=== PATIENT | male | born 1965 | race Caucasian/White ===

== ENCOUNTER 2020-12-23 20:22 | Inpatient (IN) | payer MEDICAID ==
[~2020-12-23] VITALS: Ht 170.2 cm; Wt 98.4 kg
--- NOTE | 2020-12-23 20:34 | NUR ---
Dr. Ireland at bedside for [facility].
[2020-12-23] MEDS ORDERED: ASPI81TA31 PO (20:42)
[2020-12-23] MEDS ORDERED: clonidine PO (20:42)
--- NOTE | 2020-12-23 20:49 | NUR ---
Xray at bedside.
[2020-12-23 20:53] LABS: BASOPHILS # (AUTO) 0.1 K/uL (0.0-8.0); BASOPHILS % (AUTO) 0.6 % (0.0-2.0); EOSINOPHILS # (AUTO) 0.3 K/uL (0.0-0.7); EOSINOPHILS % (AUTO) 2.9 % (0.0-7.0); HEMATOCRIT 35.2 % (36.7-47.1); HEMOGLOBIN 11.2 g/dL (12.5-16.3); LYMPHOCYTES % (AUTO) 20.8 % (20.5-51.5); MEAN CORPUSCULAR HEMOGLOBIN 28.5 uug (23.8-33.4); MEAN CORPUSCULAR HGB CONC 32 g/dL (32.5-36.3); MEAN CORPUSCULAR VOLUME 89.7 fL (73.0-96.2); MONOCYTES # (AUTO) 0.7 K/uL (2.0-10.0); MONOCYTES % (AUTO) 7.3 % (0.0-11.0); NEUTROPHILS # (AUTO) 6.7 K/uL (1.8-8.9); NEUTROPHILS % (AUTO) 68.4 % (38.5-71.5); PLATELET COUNT (AUTO) 268 K/uL (152-348); RED BLOOD CELL COUNT(AUTO) 3.92 MIL/uL (4.06-5.63); WHITE BLOOD COUNT (AUTO) 9.8 K/uL (3.6-10.2)
[2020-12-23 20:57] LABS: CARBON DIOXIDE 26 mmol/L (21-32); CHLORIDE 105 mmol/L (98-107); CREATININE 6.7 mg/dL (0.6-1.3); GLUCOSE 99 mg/dL (74-106); POTASSIUM 4.8 mmol/L (3.5-5.1); UREA NITROGEN, BLOOD 58 mg/dL (7-18)
[2020-12-23 21:02] LABS: ALANINE AMINOTRANSFERASE 9 U/L (16-63); ALKALINE PHOSPHATASE 61 U/L (50-136); ASPARTATE AMINOTRANSFERASE 16 U/L (15-37); BILIRUBIN,DIRECT < 0.1 mg/dL (0.0-0.2); BILIRUBIN,TOTAL 0.3 mg/dL (0.2-1.0); TOTAL PROTEIN, SERUM 6.1 g/dL (6.4-8.2)
[2020-12-23] MEDS ORDERED: NITROGLYCERIN OINT 1 GM PACKET TP ONE ×2 (21:28→21:30)
--- NOTE | 2020-12-23 21:54 | NUR ---
Dr. Ireland on panel call with Jayna Grimes NP. Patient accepted for admission to [facility], diagnosis: volume overload.
[2020-12-23] MEDS ORDERED: ACETAMINOPHEN 325 MG TABLET PO ONE (22:00)
--- NOTE | 2020-12-23 22:00 | NUR ---
Paged MVP for nephrology consult.
--- NOTE | 2020-12-23 22:12 | NUR ---
DR Ireland spoke to Dr Shailesh Watts for nephrology consult.
[2020-12-23] MEDS ORDERED: ACETAMINOPHEN 325 MG TABLET PO PRN (22:15)
[2020-12-23] MEDS ORDERED: ONDANSETRON 4 MG/2 ML VIAL IV PRN (22:15)
[2020-12-23] MEDS ORDERED: CLONIDINE HCL 0.1 MG TABLET PO PRN (22:15)
[2020-12-23] MEDS ORDERED: Z GUARD REMEDY PASTE 57 GM TUBE TOP PRN (22:15)
[2020-12-23] MEDS ORDERED: ACETAMINOPHEN 325 MG TABLET ONE (22:20)
--- NOTE | 2020-12-23 22:25 | NUR ---
Report given to Kus[facility].
--- NOTE | 2020-12-23 23:00 | NUR ---
RECEIVED PT FROM ER VIA WHEELCHAIR.UNDER THE CARE OF RHONDA SHINE DNP. PT IN NO ACUTE DISTRESS. IV INTACT. ALF ASSESSMENT DONE. ADMISSION PROCESS AND CARE PLAN INITIATED. BELONGING LIST NOTED. SAFETY AND COMFORT PROVIDED. PT REQUESTING FOR SLEEPING MEDICATION AND EXTRA PAIN MEDICATION NOT JUST TYLENOL. WILL NOTIFY AREA FIELD MANAGER. WILL CONTINUE TO MONITOR.
[2020-12-23 23:14] VITALS: BP 133/84
[2020-12-23] MEDS ORDERED: ZOLPIDEM 5 MG TABLET PO ONE (23:30)
--- NOTE | 2020-12-23 23:30 | NUR ---
CHRIS 1MG ONE TIME ORDERED FOR THE PT .
--- NOTE | 2020-12-24 06:10 | NUR ---
PT SLEPT INTERMITTENTLY. PT IN NO ACUTE DISTRESS. PRESCRIBED MEDICATION GIVEN AND PT TOLERATED IT WELL. . PT REFUSED TO WEAR HOSPITAL GOWN AND FOR SKIN CHECK. SAFETY AND COMFORT PROVIDED. ALL NEEDS ARE MET.ENDORSE TO INCOMING NURSE FOR CONTINUITY OF CARE.
[2020-12-24 06:16] VITALS: BP 137/77
[2020-12-24] MEDS ORDERED: PANTOPRAZOLE SODIUM 40 MG TABLET.DR PO SCH (07:00)
[2020-12-24 07:12] LABS: BASOPHILS % (AUTO) 0.5 % (0.0-2.0); EOSINOPHILS # (AUTO) 0.6 K/uL (0.0-0.7); EOSINOPHILS % (AUTO) 9.8 % (0.0-7.0); HEMATOCRIT 41.5 % (36.7-47.1); HEMOGLOBIN 14.2 g/dL (12.5-16.3); LYMPHOCYTES # (AUTO) 1.5 K/uL (20.0-40.0); LYMPHOCYTES % (AUTO) 23.4 % (20.5-51.5); MEAN CORPUSCULAR HEMOGLOBIN 32.4 uug (23.8-33.4); MEAN CORPUSCULAR HGB CONC 34 g/dL (32.5-36.3); MONOCYTES # (AUTO) 0.6 K/uL (2.0-10.0); MONOCYTES % (AUTO) 9.5 % (0.0-11.0); NEUTROPHILS # (AUTO) 3.7 K/uL (1.8-8.9); NEUTROPHILS % (AUTO) 56.8 % (38.5-71.5); PLATELET COUNT (AUTO) 201 K/uL (152-348); RED BLOOD CELL COUNT(AUTO) 4.37 MIL/uL (4.06-5.63); WHITE BLOOD COUNT (AUTO) 6.6 K/uL (3.6-10.2)
[2020-12-24 07:29] LABS: CREATININE 0.9 mg/dL (0.6-1.3); PHOSPHOROUS 3.9 mg/dL (2.5-4.9); POTASSIUM 3.9 mmol/L (3.5-5.1)
--- NOTE | 2020-12-24 07:30 | NUR ---
Received pt in bed with dialysis. In no acute distress, iv site intact and patent, On room air. pt is able to make needs known call light in reach and safety measures in place. will continue to monitor
[2020-12-24 07:42] LABS: THYROID STIMULATING HORMONE 1.867 mIU/mL (0.358-3.740)
[2020-12-24] MEDS ORDERED: ASPIRIN 81 MG TAB.CHEW PO SCH (09:00)
[2020-12-24 09:04] LABS: BASOPHILS # (AUTO) 0.1 K/uL (0.0-8.0); BASOPHILS % (AUTO) 0.7 % (0.0-2.0); EOSINOPHILS # (AUTO) 0.2 K/uL (0.0-0.7); EOSINOPHILS % (AUTO) 1.9 % (0.0-7.0); HEMATOCRIT 31.8 % (36.7-47.1); HEMOGLOBIN 10.3 g/dL (12.5-16.3); LYMPHOCYTES # (AUTO) 1.4 K/uL (20.0-40.0); LYMPHOCYTES % (AUTO) 15.3 % (20.5-51.5); MEAN CORPUSCULAR HGB CONC 33 g/dL (32.5-36.3); MEAN CORPUSCULAR VOLUME 89.1 fL (73.0-96.2); MONOCYTES # (AUTO) 0.6 K/uL (2.0-10.0); MONOCYTES % (AUTO) 6.3 % (0.0-11.0); NEUTROPHILS # (AUTO) 6.7 K/uL (1.8-8.9); NEUTROPHILS % (AUTO) 75.8 % (38.5-71.5); PLATELET COUNT (AUTO) 232 K/uL (152-348); RED BLOOD CELL COUNT(AUTO) 3.57 MIL/uL (4.06-5.63); WHITE BLOOD COUNT (AUTO) 8.9 K/uL (3.6-10.2)
[2020-12-24 09:18] LABS: MAGNESIUM 1.9 mg/dL (1.8-2.4); PHOSPHOROUS 3.6 mg/dL (2.5-4.9); POTASSIUM 4.2 mmol/L (3.5-5.1)
--- NOTE | 2020-12-24 11:15 | NUR ---
Dialysis was completed 1000 output. vital signs WNLs
[2020-12-24 11:55] VITALS: BP 134/82
--- NOTE | 2020-12-24 12:45 | NUR ---
Pt was discharged and left in a wheel chair. Teaching was completed about continuing dialysis on scheduled days and following up with PCP, Verbal understanding was given. All meds given as ordered and left with prescriptions. Pt on room air satting well. Pt in no acute distress and left with proper documentation.
== END 2020-12-24 12:00 | disposition home or self-care (01) | DRG 194 ==
LOC: ER 20:24 → MEDSURG3 22:32
PROVIDERS: ADMIT Registered Nurse; ATTEND Registered Nurse
PROC: 5A1D70Z Performance of Urinary Filtration, Intermittent, Less than 6 Hours Per Day (ICD-10-PCS; principal; 2020-12-24)
DX: I13.2 Hypertensive heart and chronic kidney disease with heart failure and with stage 5 chronic kidney disease, or end stage renal disease (principal); N18.6 End stage renal disease; Z99.2 Dependence on renal dialysis; E66.9 Obesity, unspecified; I25.10 Atherosclerotic heart disease of native coronary artery without angina pectoris; I25.2 Old myocardial infarction; M19.90 Unspecified osteoarthritis, unspecified site; M89.9 Disorder of bone, unspecified; Z86.73 Personal history of transient ischemic attack (TIA), and cerebral infarction without residual deficits; J44.9 Chronic obstructive pulmonary disease, unspecified; F17.210 Nicotine dependence, cigarettes, uncomplicated; Z68.34 Body mass index [BMI] 34.0-34.9, adult; Z91.15 Patient's noncompliance with renal dialysis; I50.32 Chronic diastolic (congestive) heart failure; Z20.822 Contact with and (suspected) exposure to COVID-19
CPT/HCPCS: 36415; 71045; 83735; 84100; 84443; 85025; 93005; A4663; G0378